=== PATIENT | female | born 1955 | race Two or more races ===

== ENCOUNTER 2025-09-08 10:27 | Emergency (ER) | payer OTHER ==
[~2025-09-08] VITALS: Ht 162.6 cm; Wt 49.9 kg
[2025-09-08] MEDS ORDERED: SYNTHROID50 MCG (11:37)
[2025-09-08] MEDS ORDERED: METFORMIN HCL500 MG (11:38)
[2025-09-08] MEDS ORDERED: SIMVASTATIN5 MG (11:38)
[2025-09-08] MEDS ORDERED: COZAAR50 MG (11:38)
[2025-09-08 11:39] VITALS: BP 150/66; O2SAT 98
[2025-09-08] MEDS ORDERED: TRAMADOL HCL 50 MG TABLET PO ONE (12:15)
[2025-09-08] MEDS ORDERED: PANTOPRAZOLE SODIUM 40 MG/VIAL VIAL IV ONE (12:15)
[2025-09-08 13:28] LABS: BASO % 0.2 % (0.1-1.2); EOS # 0.04 (0.04-0.54); EOS % 0.4 % (0.7-7.0); LYMPH # 1.33 (1.18-3.74); LYMPH % 14.7 % (19.3-53.1); MEAN PLATELET VOLUME 9.60 fl (9.4-12.4); MONO # 0.69 (0.24-0.82); MONO % 7.6 % (4.7-12.5); NEUT # 6.93 (1.56-6.13); NEUT % 76.9 % (34.0-71.1); RED CELL DISTRIBUTION WIDTH 12.9 % (11.6-14.4)
[2025-09-08] MEDS ORDERED: KETOROLAC TROMETHAMINE 30 MG VIAL IV ONE (13:30)
[2025-09-08 14:03] LABS: INR 1.03
[2025-09-08 14:06] LABS: ALT/SGPT 28.0 U/L (12-78); AST/SGOT 22.0 U/L (15-37); BILIRUBIN TOTAL 1.37 mg/dL (0.3-1.2); BUN CREA RATIO 21.0 (7.0-25.0); CREATININE SERUM 0.96 mg/dL (0.55-1.02); GFR 57.13; GLOBULINA 3.1 G/DL (2.4-3.5); GLUCOSE FASTING 109.0 mg/dL (65-100); OSMOLALITY SERUM 281.0 MOSM/KG (275-295)
[2025-09-08 15:19] LABS: URINE APPEARANCE Clear; URINE BILIRRUBIN Negative (NEGATIVE); URINE BLOOD Small; URINE COLOR Yellow; URINE GLUCOSE Negative (NEGATIVE); URINE KETONE 15 (NEGATIVE); URINE LEUKOCYTE Negative; URINE NITRATE Negative; URINE PROTEIN Negative (NEGATIVE); URINE UROBILINOGEN 0.2 E.U./dl
[2025-09-08] MEDS ORDERED: PEPCID AC20 MG PO (15:39)
[2025-09-08] MEDS ORDERED: PROBIOTIC1 EAC2 PO (15:39)
[2025-09-08] MEDS ORDERED: METRONIDAZOLE500 MG PO (15:39)
[2025-09-08] MEDS ORDERED: CIPRO500 MG PO (15:39)
[2025-09-08 16:21] LABS: URINE EPITHELIAL CELLS 0-4 /HPF; URINE RBC 0-3 /HPF; URINE WBC 0-2 /hpf
[2025-09-08 16:22] LABS: URINE BACTERIA FEW; URINE MUCUS SCANT
== END 2025-09-08 19:24 | disposition home or self-care (01) ==
LOC: ER 10:28
PROVIDERS: General Practice
DX: K62.5 Hemorrhage of anus and rectum (principal); K57.30 Diverticulosis of large intestine without perforation or abscess without bleeding; K52.89 Other specified noninfective gastroenteritis and colitis; I10 Essential (primary) hypertension; E11.9 Type 2 diabetes mellitus without complications; Z79.84 Long term (current) use of oral hypoglycemic drugs; Z88.0 Allergy status to penicillin
CPT/HCPCS: 36415; 74176; 96365; 99283; J1885; J3490